=== PATIENT | female | born 1990 | race Caucasian/White ===

== ENCOUNTER → 2017-08-20 15:23 | Outpatient (CLI) | payer OTHER, SELFPAY ==
--- NOTE | 2017-08-20 15:28 | XR_ITS ---
EXAM: XR lumbar spine 2-3V HISTORY: Low back pain with numbness ITS.REASON: numbness ORDERING PHYSICIAN: Ifeanyi Israel MD PATIENT AGE: 26 years COMPARISON: None FINDINGS: Normal alignment. No fracture or dislocation. No lytic or blastic change. No significant degenerative change. The disc spaces are preserved. There is a 3 mm calcific density in the right mid abdominal region which could be due to a renal stone and may be confirmed with CT clinically warranted. IMPRESSION: 1. Negative lumbar spine. 2. Possible right nephrolithiasis
[2017-08-20 17:18] LABS: Basophils % 0.6 % (0.1-2.0); Eosinophils # 0.1 K/mm3 (0.0-0.4); Hematocrit 43.2 % (37.0-47.0); Hemoglobin 14.3 g/dL (12.2-16.2); Lymphocytes % 28.5 K/mm3 (10-50); Mean Corpuscular Hemoglobin 29.5 pg (27.0-31.2); Mean Corpuscular Volume 89.3 fl (81-99); Mean Platelet Volume 8.6 fl (7.4-10.4); Monocytes # 0.4 K/mm3 (0.1-1.0); Monocytes % 5.3 % (1.7-9.3); Neutrophils # 4.5 K/mm3 (1.8-7.8); Neutrophils % 63.5 % (37.0-80.0); Platelet Count 219 K/mm3 (142-424); Red Blood Count 4.83 M/mm3 (4.20-5.40); Red Cell Distribution Width 12.2 % (11.5-17.5)
[2017-08-20 18:18] LABS: Alanine Aminotransferase 41 U/L (12-78); Albumin Level 4.3 gm/dL (3.4-5.0); Albumin/Globulin Ratio 1.4 (1.1-1.8); Alkaline Phosphatase 57 U/L (46-116); Anion Gap 10.8 mEq/L (5-15); Aspartate Amino Transferase 28 U/L (15-37); Bilirubin,Total 0.3 mg/dL (0.2-1.0); Blood Urea Nitrogen 18 mg/dL (7-18); Calcium 8.6 mg/dL (8.5-10.1); Carbon Dioxide 30 mmol/L (21.0-32.0); Chloride 103 mmol/L (98-107); Creatinine,Serum 0.73 mg/dL (0.55-1.02); Estimated Glomerular Filt Rate 96 ml/min (>60); GFR (African American) 117 ML/MIN (>60); Glucose 84 mg/dL (74-106); Potassium 3.8 mmoL/L (3.5-5.1); Sodium 140 mmol/L (136-145); Thyroid Stimulating Hormone 2.79 uIU/ml (0.358-3.740); Total Protein,Serum 7.3 gm/dL (6.4-8.2)
[2017-08-22 13:20] LABS: Folate >20.0 ng/mL (>3.0); Vitamin B12 1105 pg/mL (232-1245)
[2017-08-22 13:21] LABS: Rapid Plasma Reagin Ab Titer Non Reactive (NonRea<1:1)
[2017-11-05 09:54] LABS: Anti-DNA (DS) Ab Qn <1; RNP Antibodies <0.2
[2017-11-05 09:55] LABS: Anti-Smith Antibody <0.2; Antiscleroderma-70 Antibodies <0.2; Sjogren's Anti-SS-A <0.2; Sjogren's Anti-SS-B <0.2
[2017-11-05 09:56] LABS: Anti-Centromere B Antibodies 0.2; Anti-Jo-1 <0.2; Antichromatin Antibodies 0.2
== END ==
PROVIDERS: Specialist; PCP Family Medicine; Visit Provider Internal Medicine
DX: M54.16 Radiculopathy, lumbar region (principal)
CPT/HCPCS: 36415; 72100; 80053; 82607; 82746; 84443; 85025; 86038; 86592

== ENCOUNTER → 2017-08-20 16:55 | Outpatient (CLI) | payer OTHER, SELFPAY | PROVIDERS: Visit Provider Specialist | DX: G35 Multiple sclerosis (principal); R53.1 Weakness; R20.0 Anesthesia of skin; R20.2 Paresthesia of skin; G37.3 Acute transverse myelitis in demyelinating disease of central nervous system | CPT/HCPCS: 36415; 80053; 82607; 82746; 84443; 85025; 86038; 86592 ==

== ENCOUNTER → 2017-09-10 13:18 | Outpatient (CLI) | payer OTHER, SELFPAY ==
--- NOTE | 2017-09-10 13:21 | MR_ITS ---
MR head/brain wo/w con Ordering Physician: Deb Thomason MD Patient Age: 26 years: Female HISTORY: Headaches with bilateral arm and hand numbness/tingling 3 months.. TECHNIQUE: : Precontrast Multiplanar FLAIR, T1, T2 weighted images along with axial diffusion/ADC imaging performed on 1.5 T. Siemens, MRI. Postcontrast imaging [id number] ProHance T1-weighted images axial & coronal plane performed COMPARISON :No previous relevant studies FINDINGS Brain appears within normal limits with no mass lesion. No abnormal areas of enhancement. No deep white matter lesions at cerebral hemispheres nor infratentorial region. Survey of the orbits and optic nerve unremarkable in this young patient as well. Diffusion images show no acute or recent infarct. Sensitive FLAIR images show no significant deep white matter findings. Scant signal just along the tips anterior horns bilaterally reflect normal variations of the epididymitis granularis. Postcontrast images show no abnormal areas of enhancement. The CP angles are clear. IACs appear satisfactory as do the Cranial nerve VII and VIII appear. Cerebellum unremarkable. Mastoid air cells fairly clear.. . The paranasal sinuses appear well-developed and overall clear with no significant sinusitis . There is moderate engorgement nasal turbinates bilaterally most evident on the right . Cranial cervical junction. Cerebellar tonsils slightly elongated & slight low-lying.. The tips cerebellar tonsils extend 4-on the lateral to the right & perhaps up to 4.5 mm below the foramen magnum just left of midline..... The tip the cerebellar tonsils have a normal rounded appearance and not pointed or peglike the uppermost C-spine to the C3 level unremarkable. The cervical cranial junction itself of adequate in generous volume. The sella, pituitary stalk and suprasellar region unremarkable.. Corpus callosum a generous, well-maintained The dural venous sinuses satisfactory === IMPRESSION: ==== 1. No acute intracranial findings. 2. No mass lesion. No abnormal areas of enhancement. . 3.. Low-lying cerebellar tonsils. Slight generous & elongated cerebellar tonsils,, which extends up to 4 - 4.5 mm inferior to foramen magnum.
--- NOTE | 2017-09-10 13:21 | MR_ITS ---
MR cervical spine wo con HISTORY: Bilateral arm and hand numbness and tingling, neck pain ORDERING PHYSICIAN: Deb Thomason MD PATIENT AGE: 26 years COMPARISON: None TECHNIQUE: Standard multiplanar multiecho sequences are performed without contrast. 3-D MIP and myelographic images are also rendered and reviewed FINDINGS: There is normal alignment. There is mild cerebellar tonsillar ectopia of approximately 5 mm. C2-C3, C3-C4 have an unremarkable appearance. C4-C5: Minimal central disc protrusion slightly eccentric toward the left versus prominent posterior longitudinal ligament. Without impingement. C5-C6: Broad-based small to medium sized central and left paracentral disc herniation. There is impingement upon the central left aspect of the cord with flattening of the cord both anteriorly and posteriorly with canal stenosis at 6 mm. There is slight increased T2 signal of the cord at this region which could be due to some underlying edema. C6-C7 and C7-T1 have an unremarkable appearance. IMPRESSION: 1. Broad-based small to medium sized central and left paracentral disc herniation. There is impingement upon the central left aspect of the cord with flattening of the cord both anteriorly and posteriorly with canal stenosis at 6 mm. 2. Minimal central disc protrusion versus prominent posterior longitudinal ligament at C4-C5 3. Cerebellar tonsillar ectopia
== END ==
PROVIDERS: PCP Family Medicine; Visit Provider Specialist
DX: G35 Multiple sclerosis (principal); R53.1 Weakness; R20.0 Anesthesia of skin; R20.2 Paresthesia of skin; G37.3 Acute transverse myelitis in demyelinating disease of central nervous system
CPT/HCPCS: 70553; 72141; 76376; A9576